=== PATIENT | female | born 1955 | race Caucasian/White ===

== ENCOUNTER 2025-01-19 13:34 | Emergency (ER) | payer MEDICARE, SELFPAY ==
--- NOTE | ~2025-01-19 | CT_ITS ---
CT abdomen pelvis w con Ordering provider: Yamila Valle PA-C History: 69 years Female with . abd pain, diarrhea, recent hemicolectomy . Comparison: None. Technique: CT abdomen and pelvis with IV and without oral contrast. Automated exposure control and it erative reconstruction technique were employed. The dose-length product was 214.85 mGy-cm. 100 mL Omn ipaque 350 was given IV. Findings: VISUALIZED LOWER CHEST: Dependent atelectatic changes. UPPER ABDOMINAL ORGANS: Liver: Multiple hypodensities which are most likely cysts with the largest measures 1.3 cm. Ultrasoun d confirmation advised. Gallbladder: Slightly contracted. Spleen: Normal. Stomach/duodenum: Normal. Pancreas: Normal. Adrenals: Left adrenal adenoma is noted measuring 1.3 cm. No follow-up is advised unless clinically w arranted.. Kidneys: Multiple cysts in the left and right kidney with the largest in the left kidney measures 2.1 cm. Stone in the left kidney lower pole measuring 6 mm Stone in the right kidney upper pole is seen measuring 4 mm. Stone in the midpole is seen measuring 4 mm. PELVIC ORGANS: The bladder is normal. BOWEL AND MESENTERY: Colon: Postoperative changes in the colon is seen in the right lower quadrant. The appendix is not de monstrated. Small Bowel: Normal. No obstruction. Peritoneum/mesentery: No free air. Minimal Free fluid is seen in the right pararectal area. No mesenteric lymphadenopathy. Small mesenteric lymph nodes are noted. RETROPERITONEUM: Mild atheromatous disease of the abdominal aorta. No retroperitoneal lymphadenopat hy. Paraortic lymph nodes are seen with the largest measures 0.9 cm. MUSCULOSKELETAL: Superficial soft tissues: Postoperative changes in the left anterior abdominal wall with small collec tion measuring 2.8 x 1 cm and air bubbles. Otherwise, The superficial soft tissues are normal. Bones: Chronic loss of height is seen in L1. Age appropriate degenerative changes of the spine. Heman gioma in T11. Bilateral hip osteoarthritic changes. IMPRESSION: 1. No evidence of appendicitis, diverticulitis or intestinal obstruction. Postoperative changes seen in the right side of the colon. 2. Bilateral kidney stones. 3. Bilateral renal cysts. 4. Minimal free fluid in the right parietal area. Reviewed, dictated and finalized at location A. IMPRESSION: 1. No evidence of appendicitis, diverticulitis or intestinal obstruction. Post operative changes seen in the right side of the colon. 2. Bilateral kidney stones. 3. Bilateral renal cysts. 4. Minimal free fluid in the right parietal area.
[2025-01-19 13:36] VITALS: BP 101/61; PULSE 100; RESP 20; TEMP 37.1; O2SAT 100
--- NOTE | 2025-01-19 14:15 | ED.NAVMDI ---
HPI - Nausea/Vomiting/Diarrhea General Chief complaint: Nausea/Vomiting/Diarrhea Stated complaint: diarrhea Time Seen by Provider: 01/19/25 14:03 Source: patient Mode of arrival: ambulatory Limitations: no limitations History of Present Illness HPI Narrative: This is a 69-year-old female that presents to the emergency department for abdominal discomfort. Ongoing over the last 5 days. Reports associated nausea, diarrhea. Reports watery, yellow stools. She had a recent hemicolectomy on the of this month at [facility] with Dr. Reece for colon cancer. Reports chills, generalized weakness. Denies fevers. Related Data Allergies Allergy/AdvReac Type Severity Reaction Status Date / Time tramadol AdvReac Mild Back Pain Verified 01/19/25 13:39 Review of Systems Review of Systems: CONSTITUTIONAL: Denies fever GASTROINTESTINAL: Reports abdominal pain, nausea, and diarrhea. GENITOURINARY: Denies dysuria or hematuria. All systems reviewed & are unremarkable except as noted in HPI and below PMFSH Past Medical History Medical History (Updated 01/19/25 @ 18:01 by Yamila Valle PA-C) History of colon cancer Surgical History Surgical History (Updated 01/19/25 @ 14:18 by Yamila Valle PA-C) History of hemicolectomy History of appendectomy History of tubal ligation Exam Narrative: GENERAL: Uncomfortable, well-nourished, and in no acute distress. HEAD: Normocephalic, atraumatic. EYES: EOMI. ENT: Nares clear, no rhinorrhea or epistaxis. Mucous membranes moist. Oropharynx without tonsillar hypertrophy exudate or other lesions. CHEST: Clear to auscultation. No respiratory distress. No wheezes rales or rhonchi HEART: Regular rate and rhythm. No murmur heard. Normal peripheral pulses. ABDOMEN: Soft, nondistended, normal active bowel sounds. Incisions are clean, dry and intact. Tender to palpation throughout the lower abdomen, without guarding EXTREMITIES: Normal range of motion. No edema. SKIN: Warm, dry, no rash. NEURO: No focal deficits. Alert and oriented x3. PSYCH: Normal mood and affect Course Course Emergency Course: Patient updated on her workup and agrees with plan of care Consultations Consultation #1: Spoke with Dr. Montes De Oca about patient and workup. They will be in touch with patient for follow up. She does have an appointment on January 28 scheduled Date: 01/19/25 Vital Signs Vital signs: Vital Signs Temperature 98.8 F 01/19/25 13:36 Pulse Rate 100 01/19/25 13:36 Respiratory Rate 20 01/19/25 13:36 Blood Pressure 101/61 01/19/25 13:36 Pulse Oximetry 100 01/19/25 13:36 Oxygen Delivery Room Air 01/19/25 13:36 Temperature 98.8 F 01/19/25 13:36 Pulse Rate 100 01/19/25 13:36 Respiratory Rate 20 01/19/25 13:36 Blood Pressure 101/61 01/19/25 13:36 Pulse Oximetry 100 01/19/25 13:36 Oxygen Delivery Room Air 01/19/25 13:36 MDM - Nausea/Vomiting/Diarrhea MDM Narrative Medical decision making narrative: Patient presents the emergency department for abdominal discomfort, nausea, diarrhea. Recent hem[facility]lectomy at [facility] Patient is afebrile and nontoxic appearing. Her vitals are stable. Cbc without leukocytosis. Hemoglobin is 9.1, patient was able to review her blood work from her recent admission. This appears stable. Metabolic panel with mild hypokalemia, patient's potassium was replaced. Magnesium is normal. CT abdomen and pelvis with postoperative changes. Bilateral kidney stones and cyst. Minimal free fluid in the right perirectal area. Patient is positive for C diff. Spoke with Dr. Montes De Oca about patient and workup. They will be in touch with patient for follow up. She does have an appointment on January 28 scheduled. Patient updated on her workup and agrees with plan of care. We spoke about further inpatient management versus continued outpatient follow-up. She does not wish to be admitted to the hospital at this time. Will be started on oral fidaxomicin. She was given warnings to return to the ER Differential Diagnosis Differential diagnosis: Likely traveler's diarrhea, food poisoning, clostridium difficile infection, drug-induced nausea and vomiting, dehydration and other (Colitis) Lab Data Attestation: I reviewed the patient's lab results. 01/19/25 14:39 01/19/25 14:39 Labs: Lab Results 01/19/25 01/19/25 Range/Units 14:34 14:39 WBC 8.8 (4.5-10.0) K/mm3 RBC 3.39 L (4.2-5.4) M/mm3 Hgb 9.1 L (12.0-15.0) g/dL Hct 28.0 L (37.0-47.0) % MCV 82.6 (80-100) fl MCH 26.8 (26-34) pg MCHC 32.5 (32-36) g/dl RDW 12.8 (11.5-14.5) % Plt Count 264 (150-375) k/mm3 MPV 8.9 (7.4-10.4) fl Immature Gran % (Auto) 0.5 (0-0.5) % Neut % (Auto) 88.3 H (45.5-73.1) % Lymph % (Auto) 5.6 L (18.3-44.2) % Osborne % (Auto) 4.8 (2.6-8.5) % Eos % (Auto) 0.6 (0-4.4) % Baso % (Auto) 0.2 (0.2-1.2) % Lymph # (Auto) 0.49 L (0.9-3.2) K/mm3 Osborne # (Auto) 0.4 (0.1-0.6) K/mm3 Eos # (Auto) 0.1 (0-0.3) K/mm3 Baso # (Auto) 0.0 (0.0-0.1) K/mm3 Abs Immat Gran (auto) 0.04 H (0.00-0.031) K/mm3 Absolute Neuts (auto) 7.8 H (1.3-6.7) K/mm3 Absolute Nucleated RBC 0.000 (0.0-0.012) K/mm3 Nucleated RBC % 0.0 (0.0-0.2) % Sodium 135 L (137-145) mmol/L Potassium 3.3 L (3.4-5.0) mmol/L Chloride 105 (98-107) mmol/L Carbon Dioxide 20 L (22-30) mmol/L Anion Gap 10 (4-12) mmol/L BUN 10 (7-17) mg/dL Creatinine 0.70 (0.7-1.0) mg/dL Estim Creat Clear Calc 59 ml/min Estimated GFR > 60 (59 - ) Glucose 109 (65-110) mg/dL Calcium 8.9 (8.4-10.2) mg/dL Magnesium 1.9 (1.6-2.3) mg/dL Total Bilirubin 0.3 (0.2-1.3) mg/dL AST 26 (14-36) U/L ALT 15 (6-35) U/L Alkaline Phosphatase 70 (38-126) U/L Total Protein 6.9 (6.3-8.2) g/dL Albumin 3.9 (3.5-5.1) g/dL Lipase 150 (23-300) U/L C. difficile (PCR) Positive A* (NEGATIVE) Imaging Data Radiologist's impression: ITS Impressions Abdomen/Pelvis CT 01/19/25 16:44 IMPRESSION: 1. No evidence of appendicitis, diverticulitis or intestinal obstruction. Postoperative changes seen in the right side of the colon. 2. Bilateral kidney stones. 3. Bilateral renal cysts. 4. Minimal free fluid in the right parietal area. Critical Care Time Critical Care Time Critical Care Time: No Discharge Plan Discharge Clinical Impression: C. difficile colitis, Hypokalemia Patient Disposition: Home Condition: Stable Instructions: Antibiotic Form, Hypokalemia (ED), C. Diff (Clostridioides Difficile) Infection (ED) Additional Instructions: Return to the ER if you experience fever, abdominal pain with nausea and vomiting, you are unable to keep down liquids or solids, blood in the stool or any other symptoms that are concerning to you Remain well hydrated. Take oral antibiotics as prescribed. Ondansetron as needed for nausea Follow up with your surgeon Patient Language: Serbian Prescriptions: New fidaxomicin 200 mg tablet 200 mg PO Q12H 10 Days Qty: 20 0RF ondansetron 4 mg tablet,disintegrating 4 mg PO Q8H PRN (Reason: nausea and vomiting) Qty: 10 0RF Follow-up/Referrals: PHYSICIAN NOT ON STAFF,NONSTAFF [Primary Care Provider] -
[2025-01-19 14:54] LABS: Alanine Aminotransferase 15 U/L (6-35); Albumin Level 3.9 g/dL (3.5-5.1); Alkaline Phosphatase 70 U/L (38-126); Anion Gap 10 mmol/L (4-12); Aspartate Amino Transferase 26 U/L (14-36); Bilirubin,Total 0.3 mg/dL (0.2-1.3); Blood Urea Nitrogen 10 mg/dL (7-17); Calcium 8.9 mg/dL (8.4-10.2); Carbon Dioxide 20 mmol/L (22-30); Chloride 105 mmol/L (98-107); Estimated CRCL calculation 59 ml/min; Estimated Glomerular Filt Rate > 60; Glucose 109 mg/dL (65-110); Lipase 150 U/L (23-300); Potassium 3.3 mmol/L (3.4-5.0); Sodium 135 mmol/L (137-145); Total Protein 6.9 g/dL (6.3-8.2)
--- NOTE | 2025-01-19 14:56 | PC.NURSE ---
Stool sample walked down to lab by this RN. Pt. states she is unable to provide urine sample at this time.
[2025-01-19] MEDS: FAMOTIDINE 20 MG/2 ML VIAL IV PUSH (14:57)
[2025-01-19] MEDS: SODIUM CHLORIDE 0.9% IV 1,000 ML 999 ML IV CONT (14:57)
[2025-01-19] MEDS: ONDANSETRON INJ 4 MG/2 ML VIAL IV PUSH (14:57)
[2025-01-19 15:02] LABS: Basophils Percent Auto 0.2 % (0.2-1.2); Eosinophils Absolute Auto 0.1 K/mm3 (0-0.3); Eosinophils Percent Auto 0.6 % (0-4.4); Hemoglobin 9.1 g/dL (12.0-15.0); Immature Granulocyte Absolute 0.04 K/mm3 (0.00-0.031); Immature Granulocyte Percent A 0.5 % (0-0.5); Lymphocytes Absolute Auto 0.49 K/mm3 (0.9-3.2); Lymphocytes Percent Auto 5.6 % (18.3-44.2); Mean Corpuscular HGB Conc 32.5 g/dl (32-36); Mean Corpuscular Hemoglobin 26.8 pg (26-34); Mean Corpuscular Volume 82.6 fl (80-100); Mean Platelet Volume 8.9 fl (7.4-10.4); Monocytes Absolute Auto 0.4 K/mm3 (0.1-0.6); Monocytes Percent Auto 4.8 % (2.6-8.5); Neutrophils Absolute Auto 7.8 K/mm3 (1.3-6.7); Neutrophils Percent Auto 88.3 % (45.5-73.1); Platelet Count Result 264 k/mm3 (150-375); Red Blood Count 3.39 M/mm3 (4.2-5.4); Red Cell Distribution Width 12.8 % (11.5-14.5); White Blood Count 8.8 K/mm3 (4.5-10.0)
[2025-01-19 15:14] LABS: Magnesium 1.9 mg/dL (1.6-2.3)
[2025-01-19 16:28] LABS: Toxigenic C. Diff POSITIVE (NEGATIVE)
[2025-01-19] MEDS: POTASSIUM CHLORIDE 20 MEQ ER TABLET 40 MEQ PO (17:04)
[2025-01-19] MEDS: VANCOMYCIN HCL 125 MG ORAL CAPSULE PO (17:04)
== END 2025-01-19 18:25 | disposition home or self-care (01) ==
PROVIDERS: Emergency Provider Physician Assistant
DX: A04.72 Enterocolitis due to Clostridium difficile, not specified as recurrent (principal); E87.6 Hypokalemia; Z85.038 Personal history of other malignant neoplasm of large intestine
CPT/HCPCS: 36415; 74177; 80053; 83690; 83735; 85025; 87045; 87427; 87449; 87493; 89055; 96361; 96374; 96375; 99284; A9270; J2405; J7030; Q9967